=== PATIENT | male | born 1980 | race Caucasian/White ===

== ENCOUNTER → 2020-01-12 | Outpatient (CLI) | payer BC, OTHER ==
[~2020-01-12] MED LIST: CYMBALTA60 MG PO; FLINTSTONES T100 MCG PO
== END ==
LOC: LAB 14:08
PROVIDERS: ATTEND Nurse Practitioner
DX: Z20.828 Contact with and (suspected) exposure to other viral communicable diseases (principal); R50.9 Fever, unspecified; R05 Cough